=== PATIENT | female | born 1950 | race Caucasian/White ===

== ENCOUNTER 2017-07-13 17:57 | Inpatient (IN) | payer MEDICARE, OTHER, SELFPAY ==
[2017-07-13 17:59] VITALS: BP 148/86; PULSE 91; RESP 12; TEMP 37.1; O2SAT 96
--- NOTE | 2017-07-13 18:13 | ED.RN ---
MOUTH SWABS CLEANSED. MOUTH, DRY AND CRACKED. PT WEAK ANS SLEEP MOST DAY PER
[2017-07-13] MEDS: 0.9% Normal Saline 1,000 ML 1000 ML IV (18:15)
--- NOTE | 2017-07-13 18:27 | EKG12_ITS ---
Test Reason : GENERAL ILLNESS Blood Pressure : / mmHG Vent. Rate : 086 BPM Atrial Rate : 086 BPM P-R Int : 168 ms QRS Dur : 088 ms QT Int : 318 ms P-R-T Axes : 030 -57 115 degrees QTc Int : 380 ms Normal sinus rhythm Left axis deviation Septal infarct , age undetermined Abnormal ECG Confirmed by ESEQUIEL COLLIER, JACKELIN ([id number]), market editor SAVAGE FREED ([id number]) on 07/15/2017 1:00:50 PM Referred By: MAKENNA Confirmed By:JACKELIN IRAHETA MD
--- NOTE | 2017-07-13 18:27 | RAD_ITS ---
STUDY: X-RAY CHEST REASON FOR EXAM: Female, 67 years old. Weakness TECHNIQUE: Single frontal view of the chest. COMPARISON: June 12, 2016 FINDINGS: The lungs are clear and expanded. There is no demonstrated pleural abnormality. Normal size heart. Normal mediastinum and nahomy. Normal visualized pulmonary arteries. Normal visualized aortic arch and descending thoracic aorta. Normal visualized thoracic spine. Normal visualized ribs, clavicles, and shoulders. There is no demonstrated abnormality of the visualized soft tissue structures of the upper abdomen. RAD/Chest 1 View (Portable) IMPRESSION: Normal x-ray examination of the chest. Electronically Signed: Jh Griffin MD at 19:09 EDT , Service support ,
--- NOTE | 2017-07-13 18:27 | CT_ITS ---
STUDY: CT BRAIN WITHOUT CONTRAST REASON FOR EXAM: Female, 67 years old. Weakness RADIATION DOSAGE (If Supplied By Facility): CTDIvol = ( 44.99 ) mGy, DLP = ( 779.24 ) mGycm TECHNIQUE: Transaxial CT imaging of the brain was performed without administration of intravenous contrast material. Individualized dose optimization techniques were used for this CT. COMPARISON: July 03, 2016 FINDINGS: Normal soft tissue structures. Normal calvarium. There is ill-defined hypodensity in the left occipital lobe. Intracranial atherosclerosis. Normal size ventricles and extra-axial spaces for the patient's age. Normal white matter tracts of the cerebral hemispheres. Remote lacunar infarcts are noted in the basal ganglia bilaterally. Normal brainstem. Normal cerebellum. There is no intracranial hemorrhage. There are no findings of an acute ischemic infarction. Normal visualized paranasal sinuses. CT/Brain/Head without Contrast IMPRESSION: Subacute infarct left posterior cerebral artery territory unchanged. MRI would be helpful for further characterization if clinically warranted. Remote bilateral lacunar infarcts. Electronically Signed: Jh Griffin MD at 19:03 EDT , Service support ,
[2017-07-13 18:40] LABS: Absolute Lymphocyte Count 2.78 X10^3/ul (0.83-4.51); Absolute Neutrophil Count 6.2 X10^3/uL (2.0-7.7); Basophil# 0.04 X10^3/uL; Basophil% 0.4 % (0-1); Eosinophil# 0.35 X10^3/uL; Eosinophils% 3.4 % (0-5); Hemoglobin 13.1 g/dl (12.0-15.0); Lymphocyte # 2.78 X10^3/ul (4.0); Lymphocyte % 27.3 % (19-41); Mean Corpuscular Hgb 28.1 pg (27.0-32.0); Monocyte# 0.82 X10^3/uL; Monocyte% 8.1 % (0-10); Neutrophil # 6.17 X10^3/uL (2.7-7.7); Neutrophil % 60.7 % (47-70); Platelet Count 272 K/mm3 (150-450); RBC Distribution Width CV 12.7 % (11.6-14.6); RBC Distribution Width SD 40.4 fl (35.1-43.9); Red Blood Count 4.66 M/mm3 (4.2-5.4); White Blood Count 10.2 K/mm3 (4.4-11.0)
[2017-07-13 18:43] LABS: POSITIVE COUNT NO; POSITIVE DIFFERENTIAL NO; POSITIVE MORPHOLOGY NO
[2017-07-13] MEDS: 0.9% Normal Saline 1,000 ML 250 ML IV (18:52)
[2017-07-13 18:57] LABS: ALB/GLOB Ratio 0.9 RATIO (0.9-2.4); AST(SGOT) 33 U/L (15-37); Alanine Aminotransfer ALT/SGPT 47 U/L (13-56); Albumin, Serum 3.4 g/dL (3.2-5.0); Alkaline Phosphatase 119 U/L (45-117); Anion Gap 9 (5-15); BUN 35 mg/dL (7-18); BUN/Creat Ratio 27.3 RATIO (10-20); Calcium,Total 9.5 mg/dL (8.5-10.1); Chloride 111 mmol/L (98-107); Creatinine, Serum 1.28 mg/dL (0.55-1.02); EST Glomerular Filtration Rate 44 mL/min (>60); Est Glom Filt Rate - Afr Amer 54 mL/min (>60); Estimated Creatinine Clearance 43.41 ml/min; Globulin 3.8 g/dL (2.2-4.2); Glucose 118 mg/dL (74-106); Potassium 3.8 mmol/L (3.5-5.1); Protein, Total 7.2 g/dL (6.4-8.2); Sodium Level 146 mmol/L (136-145)
[2017-07-13 19:13] LABS: Mucous, Urine 0 SEEN /hpf (<or=2+); Red Blood Cells-Urine 0 SEEN /hpf (0-5)
[2017-07-13 19:24] LABS: Color, Urine Yellow (Yellow); Glucose, Dipstick Normal (Normal); Ketone-Dipstick Negative (Negative); Leukocyte Esterase-Dipstick 500 /ul (Negative); Nitrite-Dipstick Positive (Negative); Occult Blood-Urine 50 /ul (Negative); Protein-Dipstick 30 mg/dl (Negative); Urine Bilirubin Dipstick Negative (Negative); Urine Clarity Cloudy (Clear); Urine Urobilinogen Normal (Normal)
[2017-07-13 19:41] LABS: White Blood Cells 25-50 SEEN /hpf (0-5)
[2017-07-13 19:50] LABS: Bacteria 4+ /hpf (None Seen)
[2017-07-13 19:52] LABS: Squamous Epithelial Cells - UA 5-10 SEEN /hpf (5-10)
[2017-07-13] MEDS: Ceftriaxone 1 GM/50 ML BAG IV (20:41)
[2017-07-13 20:48] VITALS: BP 119/59; PULSE 92; RESP 20; TEMP 36.7; O2SAT 96
[2017-07-13 21:18] VITALS: BP 133/90; PULSE 90; RESP 18
--- NOTE | 2017-07-13 22:31 | ED.VISSUMM ---
- ER Visit Summary Date of Service: 07/13/17 Chief Complaint: Dehydration, weakness, decreased p.o. intake History of Present Illness: The patient is a 67 F presenting for evaluation from home secondary to the above. Apparently the patient recently suffered a stroke with residual right-sided symptoms. She was initially in a long term for this. Patient's did not want her to remain in a long term, so made the decision to bring the patient home and attempt care for her at home. He does have home health care a couple times a week for 5 hours of time. He states that the patient however has been declining functionally, and really has been extremely difficult to get to eat or drink anything. Patient states that she just feels generally weak is unable to get up or get around, and states that nothing tastes good to her. She denies any sort of fever or chest pain nausea vomiting diarrhea. She has chronic weakness on the right secondary to her stroke. Review of systems otherwise negative. Physical Examination: Vital signs within normal limits. Well-nourished female pale but otherwise not in physiologic distress. Dry mucous membranes are noted. Neck was supple. Heart regular rate and rhythm. Lungs sounds clear to auscultation bilaterally. Abdomen soft nontender. Extremities nontender. Skin was pale, patient was alert and oriented and has baseline right-sided weakness secondary to her stroke. Test Results: EKG shows sinus rate of [address] segments normal T waves. There is evidence of septal Q waves. CBC unremarkable, chemistry shows elevated sodium 146, urinalysis does show evidence of leukocytes and infection troponin negative. Chest x-ray shows chronic changes per radiology, CT brain shows chronic changes Emergency Department Course and Treatment: Patient presented secondary to functional decline dehydration decreased p.o. intake. Patient was evaluated with the above workup and was found to have a UTI and dehydration. She was given a liter normal saline and Rocephin. I discussed with patient's . He states that he is okay with patient being admitted and potentially having a temporary long term stay but his ultimate goal is for the patient to go home. I did tell him that the patient would potentially have a prolonged recovery period, and that there are multiple options available including increased resources at home. I informed him that this would be discussed while the patient was admitted. Patient will be admitted under the hospitalist. Disposition: Admission Impression: 1. UTI 2. Dehydration 3. Functional decline This note was generated with Connie dictation software. It may contain incorrect words, spelling, and punctuation that were not noted in review of the chart prior to signing ED Disposition - Plan for ED Patient: Chief Complaint: General Illness Referrals: Pascual Alberto MD [Primary Care Provider] -
--- NOTE | 2017-07-13 22:34 | ED.DCSUM_ITS ---
- ER Visit Summary Date of Service: 07/13/17 Chief Complaint: Dehydration, weakness, decreased p.o. intake History of Present Illness: The patient is a 67 F presenting for evaluation from home secondary to the above. Apparently the patient recently suffered a stroke with residual right-sided symptoms. She was initially in a long-term for this. Patient's did not want her to remain in a long-term, so made the decision to bring the patient home and attempt care for her at home. He does have home health care a couple times a week for 5 hours of time. He states that the patient however has been declining functionally, and really has been extremely difficult to get to eat or drink anything. Patient states that she just feels generally weak is unable to get up or get around, and states that nothing tastes good to her. She denies any sort of fever or chest pain nausea vomiting diarrhea. She has chronic weakness on the right secondary to her stroke. Review of systems otherwise negative. Physical Examination: Vital signs within normal limits. Well-nourished female pale but otherwise not in physiologic distress. Dry mucous membranes are noted. Neck was supple. Heart regular rate and rhythm. Lungs sounds clear to auscultation bilaterally. Abdomen soft nontender. Extremities nontender. Skin was pale, patient was alert and oriented and has baseline right-sided weakness secondary to her stroke. Test Results: EKG shows sinus rate of [address] segments normal T waves. There is evidence of septal Q waves. CBC unremarkable, chemistry shows elevated sodium 146, urinalysis does show evidence of leukocytes and infection troponin negative. Chest x-ray shows chronic changes per radiology, CT brain shows chronic changes Emergency Department Course and Treatment: Patient presented secondary to functional decline dehydration decreased p.o. intake. Patient was evaluated with the above workup and was found to have a UTI and dehydration. She was given a liter normal saline and Rocephin. I discussed with patient's . He states that he is okay with patient being admitted and potentially having a temporary long-term stay but his ultimate goal is for the patient to go home. I did tell him that the patient would potentially have a prolonged recovery period, and that there are multiple options available including increased resources at home. I informed him that this would be discussed while the patient was admitted. Patient will be admitted under the hospitalist. Disposition: Admission Impression: 1. UTI 2. Dehydration 3. Functional decline This note was generated with Connie dictation software. It may contain incorrect words, spelling, and punctuation that were not noted in review of the chart prior to signing ED Disposition - Plan for ED Patient: Chief Complaint: General Illness Referrals: Pascual Alberto MD [Primary Care Provider] -
--- NOTE | 2017-07-13 22:49 | ED.RN ---
PT'S DID C/O DR CHOWDARY TAKEN CARE OF HIS AND DR SHERWOOD DID SPEAK TO HIM ABOUT THAT.PT'S OK WITH ADMISSION.
--- NOTE | 2017-07-13 22:57 | PCM.HP.STD ---
Problem List (1) UTI (urinary tract infection) Status: Acute (2) CVA (cerebral vascular accident) Status: Acute Qualifiers: Laterality of affected vessel: unspecified (3) Dementia Status: Chronic Qualifiers: Dementia type: unspecified type Dementia behavioral disturbance: without behavioral disturbance Qualified Code(s): F03.90 - Unspecified dementia without behavioral disturbance (4) Diabetes Status: Chronic Qualifiers: Diabetes mellitus type: type 2 Diabetes mellitus assistant research scientist insulin use: with [facility] use Diabetes mellitus complication status: with unspecified complications Qualified Code(s): E11.8 - Type 2 diabetes mellitus with unspecified complications; Z79.4 - half-way (current) use of insulin (5) Obesity (BMI 30.0-34.9) Status: Chronic (6) PFO (patent foramen ovale) Status: Chronic (7) Sjogren's disease Status: Chronic Qualifiers: Sjogren's organ involvement: unspecified organ involvement Qualified Code(s): M35.00 - Sicca syndrome, unspecified History of Present Illness Date of Admission: 07/13/17 Chief Complaint: UTI The patient is a 67 year old female w/ 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 She was taken out of the half-way by her who has been caring for her. He has been doing his best to care for her but her needs are well beyond his ability to care. He has home health 3 times a week to help him care for her. Her appetite has been poor in the last several weeks with minimal food intake. She has been drinking boost and water. She also has been losing weight as a result. She has gotten progressively weaker in the past few days to weeks. Nothing appeared to make it better or worse. Weakness is not associated with any symptoms. She is unable to care for ADLs. She does not have any dysuria or burning sensation. Past Medical History Past Medical History (Chronic Problems): Chronic Problems PFO (patent foramen ovale) (Chronic) Obesity (BMI 30.0-34.9) (Chronic) Sjogren's disease (Chronic) Diabetes (Chronic) Dementia (Chronic) Allergies latex Allergy (Verified 07/13/17 18:04) Rash Sulfa (Sulfonamide Antibiotics) Allergy (Verified 07/13/17 18:04) Other SWEATING oxycodone [Oxycodone] Adverse Reaction (Verified 07/13/17 18:04) Nausea CHLORINE Allergy (Uncoded 07/13/17 18:04) Rash NITRATES Allergy (Uncoded 07/13/17 18:04) Anaphylaxis Home Medications: Ambulatory Orders Medication Instructions Recorded Atorvastatin Calcium [Lipitor] 40 mg PO QHS 06/18/16 hydrALAZINE [Apresoline] 10 mg PO BID 06/18/16 Amlodipine [Norvasc] 10 mg PO DAILY 07/13/17 Clonazepam [Clonazepam Tab.Rapdis] 1 mg PO QHS 07/13/17 Escitalopram Oxalate [Lexapro] 5 mg PO DAILY 07/13/17 Levothyroxine [Synthroid] 75 mcg PO DAILY 07/13/17 Surgical History: appendectomy, - - knee replacement x 2 Smoking Status: Never smoker - *Family History Paternal History Items: Pulmonary Disease - Maternal History Items: Diabetes, Dementia - Review of Systems Constitutional: Denies: Chills, Fever, Weight Change HEENT: Denies: Head Aches, Sinus Congestion, Sinus Drainage Cardiovascular: Denies: Chest Pain, Palpitations Respiratory: Denies: Cough, Shortness of breath at rest, Sputum production Gastrointestinal: Denies: Abdominal Pain, Nausea, Vomiting Genitourinary: Denies: Dysuria Musculoskeletal: Denies: Joint Pain, Joint Tenderness Skin: Denies: Rash, Wounds Neurological: Denies: Numbness, Tingling, Focal weakness Psychiatric: Denies: Anxiety, Depression, Homicidal Ideations, Suicidal Ideations Hematologic/ Lymphatic: Denies: Easy Bruising, Easy Bleeding VTE Information - Inpt Only VTE Present on Admission: No VTE Mechan Device Prophylaxis: SCD's VTE Pharm Prophylaxis ordered?: Yes Patient Problems: Active and Suspected Problems UTI (urinary tract infection) (Acute) - Physical Exam General: Alert, Oriented x3, Cooperative HEENT: Atraumatic, PERRLA, EOMI, Normocephalic Neck: Supple, No JVD, Negative Carotid Bruits Lungs: Clear to auscultation, Normal air movement Cardiovascular: Regular rate, No murmurs Abdomen: Bowel Sounds Present, Soft, Non Tender Extremities: No edema, Capillary Refill Less than 3 Seconds Skin: No rashes, No breakdown Musculoskeletal: No Tenderness to Palpation of Joints or Extremities Neurological: Cranial nerves II-XII grossly intact, - - Right sided weakness Psych/Mental Status: Normal Affect, Appropriate Vital Signs Temp Pulse Resp BP Pulse Ox 98.0 F 90 18 133/90 H 96 07/13/17 20:48 07/13/17 21:18 07/13/17 21:18 07/13/17 21:18 07/13/17 20:48 Oxygen Delivery Method Room Air Weight: 63.6 kg Body Mass Index (BMI) 0.0 Finger Stick Blood Glucose 190 Laboratory Tests Past 24 Hrs 07/13/17 07/13/17 07/13/17 18:03 18:03 19:10 WBC 10.2 RBC 4.66 Hgb 13.1 Hct 41.0 MCV 88.0 MCH 28.1 MCHC 32.0 RDW 12.7 RDW Differential 40.4 Plt Count 272 MPV 10.0 Immature Gran % (Auto) 0.100 Neut % (Auto) 60.7 Lymph % (Auto) 27.3 [place] % (Auto) 8.1 Eos % (Auto) 3.4 Baso % (Auto) 0.4 Absolute Neuts (auto) 6.2 Absolute Lymphs (auto) 2.78 Total Counted Not Reportable Sodium 146 H Potassium 3.8 Chloride 111 H Carbon Dioxide 26.0 Anion Gap 9 BUN 35 H Creatinine 1.28 H Estim Creat Clear Calc 43.41 Est GFR (MDRD) Af Amer 54 L Est GFR (MDRD) Non-Af 44 L BUN/Creatinine Ratio 27.3 H Glucose 118 H Calcium 9.5 Total Bilirubin 0.70 AST 33 ALT 47 Alkaline Phosphatase 119 H Troponin I < 0.02 Total Protein 7.2 Albumin 3.4 Globulin 3.8 Albumin/Globulin Ratio 0.9 Urine Color Yellow Urine Clarity Cloudy Urine pH 7.0 Ur Specific [place] 1.010 Urine Protein 30 H Urine Glucose (UA) Normal Urine Ketones Negative Urine Occult Blood 50 H Urine Nitrite Positive H Urine Bilirubin Negative Urine Urobilinogen Normal Ur Leukocyte Esterase 500 H Urine RBC 0 SEEN Urine WBC 25-50 SEEN Ur Squamous Epith Cells 5-10 SEEN Urine Bacteria 4+ Urine Mucus 0 SEEN Assessment/Plan Active and Suspected Problems UTI (urinary tract infection) (Acute) 67 year old female w/ 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 1) UTI: Most likely secondary to poor hygiene. High risk for recurrent infection. C/w ceftriaxone. Cultures pending. 2) Physical decondition: H/o CVA. C/w PT/OT. Probably will need to increase home health vs half-way. High risk for readmission given pt poor insight and judgment. She is not enthusiastic / motivated for rehab. 3) HTN: Resume home meds. 4) Prophylaxis: SCD / heparin.
[2017-07-13 23:07] VITALS: BMI 26.4
[2017-07-13] MEDS: 0.45% Normal Saline 1,000 ML 125 ML IV (23:58)
[2017-07-14] VITALS (16 sets, daily range): BP systolic 122–160; BP diastolic 62–78; PULSE 64–155; RESP 15–68; TEMP 36.3–36.8; O2SAT 94–98
[2017-07-14] MEDS: Levothyroxine 75 MCG Tablet PO (05:12)
[2017-07-14 05:39] LABS: Absolute Lymphocyte Count 2.83 X10^3/ul (0.83-4.51); Absolute Neutrophil Count 5.7 X10^3/uL (2.0-7.7); Basophil# 0.04 X10^3/uL; Basophil% 0.4 % (0-1); Eosinophil# 0.32 X10^3/uL; Eosinophils% 3.3 % (0-5); Hemoglobin 11.9 g/dl (12.0-15.0); Lymphocyte # 2.83 X10^3/ul (4.0); Mean Corp Hgb Conc 33.1 g/gl (32-36); Mean Corpuscular Hgb 28.6 pg (27.0-32.0); Mean Corpuscular Volume 86.5 fL (81-99); Mean Platelet Vol. 10.1 fl (6.2-12.0); Monocyte# 0.92 X10^3/uL; Monocyte% 9.4 % (0-10); Neutrophil # 5.65 X10^3/uL (2.7-7.7); Neutrophil % 57.8 % (47-70); Platelet Count 255 K/mm3 (150-450); RBC Distribution Width CV 12.1 % (11.6-14.6); RBC Distribution Width SD 37.8 fl (35.1-43.9); Red Blood Count 4.16 M/mm3 (4.2-5.4); White Blood Count 9.8 K/mm3 (4.4-11.0)
[2017-07-14 05:54] LABS: Anion Gap 11 (5-15); BUN 23 mg/dL (7-18); BUN/Creat Ratio 25.9 RATIO (10-20); Calcium,Total 8.7 mg/dL (8.5-10.1); Chloride 110 mmol/L (98-107); Creatinine, Serum 0.89 mg/dL (0.55-1.02); EST Glomerular Filtration Rate 67 mL/min (>60); Est Glom Filt Rate - Afr Amer 82 mL/min (>60); Estimated Creatinine Clearance 44.66 ml/min; Glucose 79 mg/dL (74-106); Potassium 3.3 mmol/L (3.5-5.1); Sodium Level 142 mmol/L (136-145)
[2017-07-14 06:03] LABS: POSITIVE COUNT NO; POSITIVE DIFFERENTIAL NO; POSITIVE MORPHOLOGY NO
[2017-07-14] MEDS: 0.45% Normal Saline 1,000 ML 125 ML IV ×2 (08:08→21:53)
[2017-07-14] MEDS: Glucerna Shake 120 ML LIQUID PO ×4 (08:11→21:38)
[2017-07-14] MEDS: hydrALAZINE 10 MG Tablet PO ×2 (08:12→21:38)
[2017-07-14] MEDS: amLODIPine 10 MG Tablet PO (08:12)
--- NOTE | 2017-07-14 08:35 | EKG12_ITS ---
Test Reason : POSSIBLE INVERTED P Blood Pressure : / mmHG Vent. Rate : 094 BPM Atrial Rate : 094 BPM P-R Int : 194 ms QRS Dur : 092 ms QT Int : 382 ms P-R-T Axes : 049 -69 049 degrees QTc Int : 477 ms Normal sinus rhythm Left axis deviation Inferior infarct , age undetermined Anterolateral infarct , age undetermined Abnormal ECG When compared with ECG of 13-JUL-2017 18:54, MANUAL COMPARISON REQUIRED, DATA IS UNCONFIRMED Confirmed by ESEQUIEL COLLIER, JACKELIN ([id number]), online content editor SAVAGE FREED ([id number]) on 07/22/2017 1:33:53 PM Referred By: EPI Confirmed By:JACKELIN IRAHETA MD
[2017-07-14] MEDS: Ceftriaxone 1 GM/50 ML BAG IV (09:43)
--- NOTE | 2017-07-14 10:28 | MRI_ITS ---
STUDY: MRI BRAIN WITHOUT CONTRAST REASON FOR EXAM: Female, 67 years old. Confusion TECHNIQUE: Standardized multiplanar fat and water weighted pulse sequences were obtained. COMPARISON: Comparison is made with July 13, 2017 CT examination No evidence for shift of midline structures, mass effect or compression of the ventricles noted. No acute or subacute ischemic insult. No acute intra or extra-axial hemorrhage No evidence for cerebellar tonsillar herniation. The basal cisterns are patent. Posterior fossa structures demonstrate no discrete mass. Chronic bilateral basal ganglia lacunar infarcts. Chronic left SUBACUTE NURSE division infarct in the left medial occipital lobe with evidence of inflammation gliosis. Left-sided wallerian degeneration. Scattered foci of T2/FLAIR hyperintensity in the periventricular and subcortical white matter also noted which are nonspecific in imaging appearance however likely related with chronic small vessel disease. Small cortical-based infarct in the supratentorial compartment also seen. Chronic right cerebellar small infarct also seen. Partially empty sella noted. Mild cerebral volume loss. Mild mucosal thickening of the ethmoid air cells. IMPRESSION: No evidence for acute or subacute ischemic insult. Chronic left basal ganglia hemorrhagic infarct. Chronic small vessel disease. Chronic left SUBACUTE NURSE division infarct in the left occipital lobe. Chronic right cerebellar infarct. No evidence for acute intracranial hemorrhage or mass seen. Electronically Signed: Toni Roth, at 20:05 EDT Tel , Service support , MRI/Brain without Contrast
--- NOTE | 2017-07-14 10:28 | ECHOCS_ITS ---
Reason For Study: EMBOLI Procedure This was a 2D Doppler, Color Flow transthoracic echocardiogram. Contrast injection was performed. The study was technically difficult. Exam performed in department. Left Ventricle Normal LV size. Left ventricular systolic function is normal. The estimated ejection fraction is 60 %. Transmitral diastolic flow velocities suggest mild (stage 1) diastolic dysfunction (reversed pattern). No regional wall motion abnormalities noted. Right Ventricle Normal RV size. Normal systolic function. Atria Normal left atrium. Normal right atrium. Mitral Valve Mitral valve not well visualized. Tricuspid Valve The tricuspid valve is not well visualized. Mild (1+) tricuspid valve insufficiency. Pulmonary artery systolic pressure is 25 mmHg. Aortic Valve The aortic valve is not well visualized. Pulmonic Valve Normal pulmonic valve. Great Vessels Normal aortic root. The pulmonary artery is normal size. Normal inferior vena cava. Pericardium/Pleural No pericardial effusion. Medication Diluted definity 3ml given slow IV push to enhance endocardial definition. MMode/2D Measurements & Calculations LVIDd: 3.4 cm IVSd: 1.0 cm Ao root diam: 3.3 cm LVIDs: 2.1 cm LVPWd: 0.98 cm LA dimension: 3.7 cm RVDd: 2.8 cm FS: 39.3 % LAV(MOD-bp): 24.4 ml LVAd ap4: 25.9 cm2 SV(MOD-sp4): 43.5 ml LAV(MOD-bp) Indexed: 15.4 ml/m2 EDV(MOD-sp4): 70.6 ml LAV(MOD-sp2): 20.8 ml EDV(sp4-el): 72.3 ml LAV(MOD-sp4): 28.8 ml LVAs ap4: 14.5 cm2 ESV(MOD-sp4): 27.1 ml ESV(sp4-el): 26.9 ml EF(MOD-sp4): 61.7 % EF(sp4-el): 62.8 % SV(sp4-el): 45.4 ml LA A4 area: 12.6 cm2 RA A4 area: 10.4 cm2 Doppler Measurements & Calculations MV E max melvin: 56.7 cm/sec Ao V2 max: 128.8 cm/sec LV V1 max: 90.0 cm/sec MV A max melvin: 97.1 cm/sec Ao max P.6 mmHg LV V1 max P.2 mmHg MV E/A: 0.58 TR max melvin: 209.6 cm/sec TR max P.6 mmHg Interpretation Summary Normal LV size. Left ventricular systolic function is normal. The estimated ejection fraction is 60 %. Transmitral diastolic flow velocities suggest mild (stage 1) diastolic dysfunction (reversed pattern). Mild (1+) tricuspid valve insufficiency. Ordering Physician: Jovani Cano Referring Physician: ELLIE TANG Performed By: Esperanza Rodriguez, MARIO, RVT
--- NOTE | 2017-07-14 12:54 | PCM.PROGNOTE ---
<Jovani Cano - Last Filed: 07/14/17 12:54> Patient Problems: Active and Suspected Problems UTI (urinary tract infection) (Acute) Subjective: Pt confused, currently not present. Pt worked with PTOT today and was very weak. She has home health care 3x/week currently and otherwise her has been caring for her. She denies dysuria, urgency, incontinence, but her hx is unreliable as the nurses report she is incontinent of urine. She denies fevers chills. She is sitting upright in the chair at bedside and required 2 assist to get there. - Physical Exam General: Alert, Cooperative, Confused HEENT: Atraumatic, PERRLA, EOMI, Normocephalic Neck: Supple, No JVD, Negative Carotid Bruits Lungs: Clear to auscultation, Normal air movement Cardiovascular: Regular rate, No murmurs Abdomen: Bowel Sounds Present, Soft, Non Tender Extremities: No edema, Capillary Refill Less than 3 Seconds Skin: No rashes, No breakdown Musculoskeletal: No Tenderness to Palpation of Joints or Extremities Neurological: Cranial nerves II-XII grossly intact Psych/Mental Status: Normal Affect, Appropriate Vital Signs Temp Pulse Resp BP Pulse Ox 97.7 F L 90 16 122/67 H 96 07/14/17 11:03 07/14/17 12:26 07/14/17 11:03 07/14/17 11:03 07/14/17 11:03 Medical Necessity - Tobacco Use Smoking Status: Never smoker Assessment/Plan Active and Suspected Problems UTI (urinary tract infection) (Acute) 1. Worsening generalized weakness - ? UTI, + UA, but asymptomatic, although hx unreliable 2/2 confusion/dementia. CT shows left subacute infarct remote BL lacunar infarcts. Will obtain MRI of the brain. No echo since 2014 so will order new one. Continue rocephin. Cx pending. No fever or WBC. Trop neg. No events on tele. CXR neg. Cx showing GNR lactose dietitian therapeutic. Follow PTOT. 2. Prior stroke 2017 hemorrhagic but also hx of receiving TPA - on statin, no asa. 3. HTN stable 4. Hypothyroid - synthroid - check tsh. 5. Hypokalemia - replace 6. Elevated creatinine, unclear baseline. Improved. 7. Suspect underlying dementia - benzos should be limited. Continue Lexapro. 8. Hx PFO 9. Hx of DMt2 - now diet controlled. 10. Hx Dysphagia - will get ST. DVT ppx: heparin DC planning: SNF, is reluctant This patient was seen by Jovani Cano PA-C under the supervision of Doctor Inna. <Francis Keith E - Last Filed: 07/14/17 14:03> - Physical Exam Vital Signs Temp Pulse Resp BP Pulse Ox 97.7 F L 90 16 122/67 H 96 07/14/17 11:03 07/14/17 12:26 07/14/17 11:03 07/14/17 11:03 07/14/17 11:03 Assessment/Plan Hospitalist note: I am seeing this patient in conjunction with Jovani Cano. I independently seen and examined the patient. Progress note above, laboratory data and imaging studies reviewed. I agree with above treatment plan. Patient was admitted for vague symptoms of weakness, decreased oral intake and dehydration. She was found to have acute cystitis and started on IV antibiotics. She had a history of stroke with right-sided hemiparesis. CT scan brain revealed subacute infarction of the left posterior cerebral artery territory. Patient has history of stroke 2 years ago and those changes could be new. The patient herself is very poor informant. Her vital signs are stable. - Physical Exam General: Alert, Cooperative, No apparent distress. HEENT: Atraumatic, PERRLA, EOMI. Neck: Supple, No JVD, Negative Carotid Bruits, Trachea Midline, Thyroid Normal. Lungs: Decreased breath sounds bilateral, otherwise clear no rhonchi, No wheeze, No rales. Cardiovascular: Regular rate, Regular Rhythm, Normal S1, Normal S2, PMI Normal. Abdomen: Bowel Sounds Present, Soft, Non Tender, Non-Distended, No Hepato-splenomegaly. Extremities: No clubbing, No cyanosis, No edema Skin: No rashes, No breakdown Neurological: Right-sided hemiparesis, cranial nerves are intact. Vital Signs are stable. Assessment and plan: #1 acute cystitis: She is on IV Rocephin. Urine and blood cultures are pending. #2 mild dehydration/mild hypernatremia: Likely because of poor oral intake, creatinine was 1.28 on admission and sodium was 146 and with IV fluids, sodium came down to 142 and creatinine came down to 0.9. Her potassium is 3.3, she was given 1 dose of K-Dur 20 mEq this morning. #3 generalized weakness: With history of right-sided hemiparesis because of stroke. CT scan brain revealed subacute infarct but patient has a history of stroke 2 years ago. Plan for MRI brain, 2D echocardiogram. She had a history of PFO. She is on statins. #4 other chronic medical problems: Stable, continue current medications as above. This note was generated with [employer] dictation software. It may contain incorrect words, spelling, and punctuation that were not noted in checking the note before signing. Code Visit Inpatient E&M: 92375 Subs Hosp L2
--- NOTE | 2017-07-14 13:06 | PN_ITS ---
<Jovani Cano - Last Filed: 07/14/17 12:54> Patient Problems: Active and Suspected Problems UTI (urinary tract infection) (Acute) Subjective: Pt confused, currently not present. Pt worked with PTOT today and was very weak. She has home health care 3x/week currently and otherwise her has been caring for her. She denies dysuria, urgency, incontinence, but her hx is unreliable as the nurses report she is incontinent of urine. She denies fevers chills. She is sitting upright in the chair at bedside and required 2 assist to get there. - Physical Exam General: Alert, Cooperative, Confused HEENT: Atraumatic, PERRLA, EOMI, Normocephalic Neck: Supple, No JVD, Negative Carotid Bruits Lungs: Clear to auscultation, Normal air movement Cardiovascular: Regular rate, No murmurs Abdomen: Bowel Sounds Present, Soft, Non Tender Extremities: No edema, Capillary Refill Less than 3 Seconds Skin: No rashes, No breakdown Musculoskeletal: No Tenderness to Palpation of Joints or Extremities Neurological: Cranial nerves II-XII grossly intact Psych/Mental Status: Normal Affect, Appropriate Vital Signs Temp Pulse Resp BP Pulse Ox 97.7 F L 90 16 122/67 H 96 07/14/17 11:03 07/14/17 12:26 07/14/17 11:03 07/14/17 11:03 07/14/17 11:03 Medical Necessity - Tobacco Use Smoking Status: Never smoker Assessment/Plan Active and Suspected Problems UTI (urinary tract infection) (Acute) 1. Worsening generalized weakness - ? UTI, + UA, but asymptomatic, although hx unreliable 2/2 confusion/dementia. CT shows left subacute infarct remote BL lacunar infarcts. Will obtain MRI of the brain. No echo since 2014 so will order new one. Continue rocephin. Cx pending. No fever or WBC. Trop neg. No events on tele. CXR neg. Cx showing GNR lactose agricultural equipment sales manager. Follow PTOT. 2. Prior stroke 2017 hemorrhagic but also hx of receiving TPA - on statin, no asa. 3. HTN stable 4. Hypothyroid - synthroid - check tsh. 5. Hypokalemia - replace 6. Elevated creatinine, unclear baseline. Improved. 7. Suspect underlying dementia - benzos should be limited. Continue Lexapro. 8. Hx PFO 9. Hx of DMt2 - now diet controlled. 10. Hx Dysphagia - will get ST. DVT ppx: heparin DC planning: SNF, is reluctant This patient was seen by Jovani Cano PA-C under the supervision of Doctor Inna. <Francis Keith E - Last Filed: 07/14/17 14:03> - Physical Exam Vital Signs Temp Pulse Resp BP Pulse Ox 97.7 F L 90 16 122/67 H 96 07/14/17 11:03 07/14/17 12:26 07/14/17 11:03 07/14/17 11:03 07/14/17 11:03 Assessment/Plan Hospitalist note: I am seeing this patient in conjunction with Jovani Cano. I independently seen and examined the patient. Progress note above, laboratory data and imaging studies reviewed. I agree with above treatment plan. Patient was admitted for vague symptoms of weakness, decreased oral intake and dehydration. She was found to have acute cystitis and started on IV antibiotics. She had a history of stroke with right-sided hemiparesis. CT scan brain revealed subacute infarction of the left posterior cerebral artery territory. Patient has history of stroke 2 years ago and those changes could be new. The patient herself is very poor informant. Her vital signs are stable. - Physical Exam General: Alert, Cooperative, No apparent distress. HEENT: Atraumatic, PERRLA, EOMI. Neck: Supple, No JVD, Negative Carotid Bruits, Trachea Midline, Thyroid Normal. Lungs: Decreased breath sounds bilateral, otherwise clear no rhonchi, No wheeze , No rales. Cardiovascular: Regular rate, Regular Rhythm, Normal S1, Normal S2, PMI Normal. Abdomen: Bowel Sounds Present, Soft, Non Tender, Non-Distended, No Hepato- splenomegaly. Extremities: No clubbing, No cyanosis, No edema Skin: No rashes, No breakdown Neurological: Right-sided hemiparesis, cranial nerves are intact. Vital Signs are stable. Assessment and plan: #1 acute cystitis: She is on IV Rocephin. Urine and blood cultures are pending. #2 mild dehydration/mild hypernatremia: Likely because of poor oral intake, creatinine was 1.28 on admission and sodium was 146 and with IV fluids, sodium came down to 142 and creatinine came down to 0.9. Her potassium is 3.3, she was given 1 dose of K-Dur 20 mEq this morning. #3 generalized weakness: With history of right-sided hemiparesis because of stroke. CT scan brain revealed subacute infarct but patient has a history of stroke 2 years ago. Plan for MRI brain, 2D echocardiogram. She had a history of PFO. She is on statins. #4 other chronic medical problems: Stable, continue current medications as above. This note was generated with [employer] dictation software. It may contain incorrect words, spelling, and punctuation that were not noted in checking the note before signing. Code Visit Inpatient E&M: 34254 Subs Hosp L2
[2017-07-14 13:47] LABS: Thyroid Stim Hormone (TSH) 0.04 uIU/mL (0.358-3.74)
--- NOTE | 2017-07-14 14:57 | CASEMGMT ---
Social Work Note SOHAIL met with pt and Pt's Binh to discuss discharge plans. SOHAIL introduced self and role at [facility]. Pt's Binh states that pt has home health services through [facility] and that he has aide services 3x a week for 5 hours. Binh states that he is able to choose the hours that the aides come to the house and that he is able to increase the amount of days and hours if needed. Binh states that pt has a bedside commode, wheelchair, bathing chair, sit and stand and the home is handicapped accessible. Binh states that the pt stays on the first floor. Binh confirms that the plan is for the pt to discharge home and resume home health services at discharge. Binh states that if necessary he would consider having pt go to [facility] for [facility] term [facility]. Binh states he would like to wait and see before having this worker send a referral to [facility]. SOHAIL informed Binh that if any issues or concerns arise to let staff know to ask for social welfare clerk. Binh states understanding. SOHAIL will continue to follow. Plan: Discharge home to resume home health services Alize ESQUIVEL, RAIL PROJECT ENGINEER.
--- NOTE | 2017-07-14 18:06 | NURSING ---
pt down for mri
[2017-07-14] MEDS: Escitalopram Oxalate 10 MG Tablet 5 MG PO (21:38)
[2017-07-14] MEDS: clonazePAM 1 MG Tablet PO (21:38)
[2017-07-14] MEDS: Atorvastatin Calcium 40 MG Tablet PO (21:38)
[2017-07-15] VITALS (7 sets, daily range): BP systolic 128–140; BP diastolic 61–95; PULSE 84–103; RESP 16–18; TEMP 36.3–36.6; O2SAT 95
[2017-07-15] MEDS: 0.45% Normal Saline 1,000 ML 125 ML IV (06:13)
[2017-07-15] MEDS: Levothyroxine 75 MCG Tablet PO (06:13)
[2017-07-15 06:17] LABS: Anion Gap 8 (5-15); BUN 16 mg/dL (7-18); BUN/Creat Ratio 18.4 RATIO (10-20); Calcium,Total 8.6 mg/dL (8.5-10.1); Chloride 113 mmol/L (98-107); Creatinine, Serum 0.87 mg/dL (0.55-1.02); EST Glomerular Filtration Rate 69 mL/min (>60); Est Glom Filt Rate - Afr Amer 84 mL/min (>60); Estimated Creatinine Clearance 45.69 ml/min; Glucose 98 mg/dL (74-106); Potassium 3.9 mmol/L (3.5-5.1); Sodium Level 142 mmol/L (136-145)
[2017-07-15] MEDS: hydrALAZINE 10 MG Tablet PO (08:30)
[2017-07-15] MEDS: Glucerna Shake 120 ML LIQUID PO (08:31)
[2017-07-15] MEDS: amLODIPine 10 MG Tablet PO (08:31)
[2017-07-15] MEDS: Ceftriaxone 1 GM/50 ML BAG IV (09:22)
[2017-07-15] MEDS: Levothyroxine 50 MCG Tablet PO (10:13)
--- NOTE | 2017-07-15 10:35 | CASEMGMT ---
Social Work Note Pt is ready to discharge. SOHAIL called Pt's Binh to discuss discharge plans. Per Binh, pt will be returning home at discharge and resuming aide services through [facility]. SOHAIL asked Binh if he would be interested in Home Health to receive skilled Pt/Ot therapy at home. Binh was receptive to this and confirmed that he would like to set up skilled Pt/Ot. Binh states that [facility] is fine to set up Pt/Ot through. SOHAIL informed RN IRENE German and she sent referral for home health. Plan: Discharge home and resume aide services through [facility] and home with [facility]. Alize Marino MSW, CONSULTANT ELECTRONICS.
--- NOTE | 2017-07-15 10:47 | PCM.DC ---
- Discharge Diagnoses Current Active Problems: Current Active and Chronic Problems UTI (urinary tract infection) (Acute) You will use the following diet at home:: Cardiac Your food should be the consistency of: Regular Your liquids should be the consistency of: Regular/Thin Discharge Activity: Return to Normal Activity Allergies/Adverse Reactions: Allergies latex Allergy (Verified 07/13/17 18:04) Rash Sulfa (Sulfonamide Antibiotics) Allergy (Verified 07/13/17 18:04) Other SWEATING oxycodone [Oxycodone] Adverse Reaction (Verified 07/13/17 18:04) Nausea CHLORINE Allergy (Uncoded 07/13/17 18:04) Rash NITRATES Allergy (Uncoded 07/13/17 18:04) Anaphylaxis Medications to take at Discharge Atorvastatin Calcium [Lipitor] 40 mg PO QHS 06/18/16 hydrALAZINE [Apresoline] 10 mg PO BID 06/18/16 Amlodipine [Norvasc] 10 mg PO DAILY 07/13/17 Clonazepam [Clonazepam Tab.Rapdis] 1 mg PO QHS 07/13/17 Escitalopram Oxalate [Lexapro] 5 mg PO DAILY 07/13/17 Cephalexin [Keflex] 500 mg PO Q12 #4 cap 07/15/17 Levothyroxine [Synthroid] 50 mcg PO DAILY@0600 #30 tab 07/15/17 The following prescriptions were given: Cephalexin [Keflex] 500 mg PO Q12 #4 cap Levothyroxine [Synthroid] 50 mcg PO DAILY@0600 #30 tab Primary Care Physician: Pascual Alberto MD [Primary Care Provider] - Please follow up with your Primary Care Physician in: 1-2 weeks Proposed Discharge Date: 07/15/17
--- NOTE | 2017-07-15 11:23 | CASEMGMT ---
Social Work Note SOHAIL received call from Binh, pt's . Binh states that he has concerns about bringing pt home and that he is looking for advice. SOHAIL explained to Binh that this worker can't tell Binh what to do and that the decision is his to make. Binh states understanding. SOHAIL informed Binh that his concerns are termite renewal inspector and that the pt will be receiving extra therapy through [facility]. SOHAIL informed Binh that if he was to decide to place pt in a intermediate facility it would be private pay. Binh states understanding of this. Binh states that he will need transportation set up and is requesting it be set up around 12:30-1:00. SOHAIL listened to Binh' concerns and offered insight and support throughout conversation. SOHAIL called [facility] and spoke with Wilma. Transportation is set up for 12:30pm. SOHAIL called Binh back to confirm that transportation is set up for 12:30. Binh states that he will be coming to see patient today before discharge. Plan: Discharge home and resume aide services through [place] and receive skilled Pt/Ot services through [facility]. There are no additional needs at this time. Alize Marino TELEPHONE MAINTAINER, ADVERTISING ACCOUNT MANAGER
--- NOTE | 2017-07-15 13:58 | PCM.DC.SUM ---
<Jovani Cano - Last Filed: 07/15/17 13:58> Discharge Date and Diagnosis Date of Admission: 07/13/17 Date of Discharge: 07/15/17 - Primary Discharge Diagnosis Acute Cystitis - klebsiella Generalized weakness Hypothyroid, suppressed TSH high T4 Mild dehydration, hypokalemia, hypernatremia Suspected underlying dementia Hx CVA, PFO Dysphagia HTN - Secondary Discharge Diagnosis Chronic Problems PFO (patent foramen ovale) (Chronic) Obesity (BMI 30.0-34.9) (Chronic) Sjogren's disease (Chronic) Diabetes (Chronic) Dementia (Chronic) Hospital Course and Treatment Imaging Results: CT/Brain/Head without Contrast IMPRESSION: Subacute infarct left posterior cerebral artery territory unchanged. MRI would be helpful for further characterization if clinically warranted. Remote bilateral lacunar infarcts. RAD/Chest 1 View (Portable) IMPRESSION: Normal x-ray examination of the chest. STUDY: MRI BRAIN WITHOUT CONTRAST IMPRESSION: No evidence for acute or subacute ischemic insult. Chronic left basal ganglia hemorrhagic infarct. Chronic small vessel disease. Chronic left INFORMATION BROKER division infarct in the left occipital lobe. Chronic right cerebellar infarct. No evidence for acute intracranial hemorrhage or mass seen. Echo: Interpretation Summary Normal LV size. Left ventricular systolic function is normal. The estimated ejection fraction is 60 %. Transmitral diastolic flow velocities suggest mild (stage 1) diastolic dysfunction (reversed pattern). Mild (1+) tricuspid valve insufficiency. Operations: None Procedures: 2-D Echocardiogram Summary of Care Provided: Physical exam on day of discharge: General: Resting comfortably NAD Psych: A/Ox1 pleasant affect HEENT: PEARRLA AT NC Neck: Supple NT CV: RRR no m/t/r/g/h Resp: CTA Abd: [id number] Soft NT no guarding or rigidity Ext: DP2+= no edema, poultry pathologist strength minimal right hand, somewhat contracted, minimal right arm strength, minimal right leg strength. Skin: W/D normal turgor Lymph/Heme: No active bleeding or adenopathy Neuro: CN2-12 intact Hospital course: The patient is a 67 year old F with a hx of hemorrhagic and ischemic stroke with chronic right sided hemiplegia in right upper and lower extremities, hx PFO, HTN, dementia who presented to the ER with increasing weakness. Her has been her primary caregiver since pulling her out of care home along with the help of home care aids however she had been getting weaker and not eating or drinking much at home. She was found to have significant generalized weakness with chronic right sided deficits, was confused, and had a UA suspicious for UTI. She was admitted to the hospital and started on rocephin for UTI and PTOT evals. She had a CT of the brain which had possible subacute infarcts on it however consistent with the areas of prior stroke. An MRI was done to further evaluate and an echo was obtained as the last one was in 2014 in our records. The MRI did not reveal acute strokes. The echo was unremarkable. Was very debilitated with PTOT however her was resistant to placement and desired home care only. This was arranged and she was discharged home with home health care in stable condition. Her urine grew out klebsiella susceptible to keflex so she was switch from rocephin to keflex for a total of 5 days of therapy. She will need to continue physical therapy with home health care and she should follow-up with her PCP in 1-2 weeks. This patient was seen by Jovani Cano PA-C under the supervision of Doctor Tony. [] Discharge Diet: Low fat/ Low Cholesterol, 2000 mg Sodium Diet Discharge Activity: Return to Normal Activity Home Medications: Medications to take at Discharge Atorvastatin Calcium [Lipitor] 40 mg PO QHS 06/18/16 hydrALAZINE [Apresoline] 10 mg PO BID 06/18/16 Amlodipine [Norvasc] 10 mg PO DAILY 07/13/17 Clonazepam [Clonazepam Tab.Rapdis] 1 mg PO QHS 07/13/17 Escitalopram Oxalate [Lexapro] 5 mg PO DAILY 07/13/17 Cephalexin [Keflex] 500 mg PO Q12 #4 cap 07/15/17 Levothyroxine [Synthroid] 50 mcg PO DAILY@0600 #30 tab 07/15/17 Following Prescrptions Were Given to Patient: Cephalexin [Keflex] 500 mg PO Q12 #4 cap Levothyroxine [Synthroid] 50 mcg PO DAILY@0600 #30 tab Primary Care Physician: Pascual Alberto MD [Primary Care Provider] - Please follow up with your Primary Care Physician in: 1-2 weeks Disposition: Home with Home Health Minutes spent on discharge:: 35 Patient Condition:: Stable Medical Necessity - Tobacco Use Smoking Status: Never smoker Meaningful Use Info Meaningful Use Diagnoses (Choose all that apply): None applicable <Manjit Jimenez - Last Filed: 07/15/17 15:14> Discharge Date and Diagnosis - Secondary Discharge Diagnosis Chronic Problems PFO (patent foramen ovale) (Chronic) Obesity (BMI 30.0-34.9) (Chronic) Sjogren's disease (Chronic) Diabetes (Chronic) Dementia (Chronic) Hospital Course and Treatment Summary of Care Provided: This patient was seen in conjunction with Jovani CHAUHAN. I have independently interviewed and examined the patient and reviewed pertinent history, examination findings, laboratory and plan of management. I have reviewed the note and agree with the documented findings with the few additional points. In brief, patient is admitted for increasing weakness. Patient has right-sided upper and lower extremity weakness and deformity secondary to multiple previous ischemic and hemorrhagic infarct/stroke as mentioned above. Urine culture shows Klebsiella pneumonia. Patient discharged on Keflex. I have discussed my assessment with Jovani CHAUHAN and orders have been reviewed. Discharge medication reconciliation done. Discharge follow-up instructions given. Total time spent, exact 32 minutes on discharge meds reconciliation, examination, review of imaging and blood test and discussion with the patient on follow-up instructions. [] Clinical Impression(s) from Imaging Studies Brain CT 07/13/17 18:27 IMPRESSION: Subacute infarct left posterior cerebral artery territory unchanged. MRI would be helpful for further characterization if clinically warranted. Remote bilateral lacunar infarcts. Brain MRI 07/14/17 10:28 No evidence for acute or subacute ischemic insult. Chronic left basal ganglia hemorrhagic infarct. Chronic small vessel disease. Chronic left INFORMATION BROKER division infarct in the left occipital lobe. Chronic right cerebellar infarct. No evidence for acute intracranial hemorrhage or mass seen. Microbiology Past 72 Hours 07/13/17 19:10 Urine, Catheterized Urine Culture - Final Klebsiella pneumoniae sp pneum Laboratory Results 07/15/17 05:45: Sodium 142, Potassium 3.9, Chloride 113 H, Carbon Dioxide 21.0, Anion Gap 8, BUN 16, Creatinine 0.87, Estim Creat Clear Calc 45.69, Est GFR (MDRD) Af Amer 84, Est GFR (MDRD) Non-Af 69, BUN/Creatinine Ratio 18.4, Glucose 98, Calcium 8.6 07/15/17 05:50: Free T4 1.80 H Code Visit Inpatient E&M: 78777 Disch Hosp
--- NOTE | 2017-07-15 14:07 | DS.PCM_ITS ---
<Jovani Cano - Last Filed: 07/15/17 13:58> Discharge Date and Diagnosis Date of Admission: 07/13/17 Date of Discharge: 07/15/17 - Primary Discharge Diagnosis Acute Cystitis - klebsiella Generalized weakness Hypothyroid, suppressed TSH high T4 Mild dehydration, hypokalemia, hypernatremia Suspected underlying dementia Hx CVA, PFO Dysphagia HTN - Secondary Discharge Diagnosis Chronic Problems PFO (patent foramen ovale) (Chronic) Obesity (BMI 30.0-34.9) (Chronic) Sjogren's disease (Chronic) Diabetes (Chronic) Dementia (Chronic) Hospital Course and Treatment Imaging Results: CT/Brain/Head without Contrast IMPRESSION: Subacute infarct left posterior cerebral artery territory unchanged. MRI would be helpful for further characterization if clinically warranted. Remote bilateral lacunar infarcts. RAD/Chest 1 View (Portable) IMPRESSION: Normal x-ray examination of the chest. STUDY: MRI BRAIN WITHOUT CONTRAST IMPRESSION: No evidence for acute or subacute ischemic insult. Chronic left basal ganglia hemorrhagic infarct. Chronic small vessel disease. Chronic left REGIONAL CRA division infarct in the left occipital lobe. Chronic right cerebellar infarct. No evidence for acute intracranial hemorrhage or mass seen. Echo: Interpretation Summary Normal LV size. Left ventricular systolic function is normal. The estimated ejection fraction is 60 %. Transmitral diastolic flow velocities suggest mild (stage 1) diastolic dysfunction (reversed pattern). Mild (1+) tricuspid valve insufficiency. Operations: None Procedures: 2-D Echocardiogram Summary of Care Provided: Physical exam on day of discharge: General: Resting comfortably NAD Psych: A/Ox1 pleasant affect HEENT: PEARRLA AT NC Neck: Supple NT CV: RRR no m/t/r/g/h Resp: CTA Abd: [id number] Soft NT no guarding or rigidity Ext: DP2+= no edema, land manager strength minimal right hand, somewhat contracted, minimal right arm strength, minimal right leg strength. Skin: W/D normal turgor Lymph/Heme: No active bleeding or adenopathy Neuro: CN2-12 intact Hospital course: The patient is a 67 year old F with a hx of hemorrhagic and ischemic stroke with chronic right sided hemiplegia in right upper and lower extremities, hx PFO , HTN, dementia who presented to the ER with increasing weakness. Her has been her primary caregiver since pulling her out of residential along with the help of home care aids however she had been getting weaker and not eating or drinking much at home. She was found to have significant generalized weakness with chronic right sided deficits, was confused, and had a UA suspicious for UTI. She was admitted to the hospital and started on rocephin for UTI and PTOT evals. She had a CT of the brain which had possible subacute infarcts on it however consistent with the areas of prior stroke. An MRI was done to further evaluate and an echo was obtained as the last one was in 2014 in our records. The MRI did not reveal acute strokes. The echo was unremarkable. Was very debilitated with PTOT however her was resistant to placement and desired home care only. This was arranged and she was discharged home with home health care in stable condition. Her urine grew out klebsiella susceptible to keflex so she was switch from rocephin to keflex for a total of 5 days of therapy. She will need to continue physical therapy with home health care and she should follow-up with her PCP in 1-2 weeks. This patient was seen by Jovani Cano PA-C under the supervision of Doctor Tony. [] Discharge Diet: Low fat/ Low Cholesterol, 2000 mg Sodium Diet Discharge Activity: Return to Normal Activity Home Medications: Medications to take at Discharge Atorvastatin Calcium [Lipitor] 40 mg PO QHS 06/18/16 hydrALAZINE [Apresoline] 10 mg PO BID 06/18/16 Amlodipine [Norvasc] 10 mg PO DAILY 07/13/17 Clonazepam [Clonazepam Tab.Rapdis] 1 mg PO QHS 07/13/17 Escitalopram Oxalate [Lexapro] 5 mg PO DAILY 07/13/17 Cephalexin [Keflex] 500 mg PO Q12 #4 cap 07/15/17 Levothyroxine [Synthroid] 50 mcg PO DAILY@0600 #30 tab 07/15/17 Following Prescrptions Were Given to Patient: Cephalexin [Keflex] 500 mg PO Q12 #4 cap Levothyroxine [Synthroid] 50 mcg PO DAILY@0600 #30 tab Primary Care Physician: Pascual Alberto MD [Primary Care Provider] - Please follow up with your Primary Care Physician in: 1-2 weeks Disposition: Home with Home Health Minutes spent on discharge:: 35 Patient Condition:: Stable Medical Necessity - Tobacco Use Smoking Status: Never smoker Meaningful Use Info Meaningful Use Diagnoses (Choose all that apply): None applicable <Manjit Jimenez - Last Filed: 07/15/17 15:14> Discharge Date and Diagnosis - Secondary Discharge Diagnosis Chronic Problems PFO (patent foramen ovale) (Chronic) Obesity (BMI 30.0-34.9) (Chronic) Sjogren's disease (Chronic) Diabetes (Chronic) Dementia (Chronic) Hospital Course and Treatment Summary of Care Provided: This patient was seen in conjunction with Jovani CHAUHAN. I have independently interviewed and examined the patient and reviewed pertinent history, examination findings, laboratory and plan of management. I have reviewed the note and agree with the documented findings with the few additional points. In brief, patient is admitted for increasing weakness. Patient has right-sided upper and lower extremity weakness and deformity secondary to multiple previous ischemic and hemorrhagic infarct/stroke as mentioned above. Urine culture shows Klebsiella pneumonia. Patient discharged on Keflex. I have discussed my assessment with Jovani CHAUHAN and orders have been reviewed. Discharge medication reconciliation done. Discharge follow-up instructions given. Total time spent, exact 32 minutes on discharge meds reconciliation, examination , review of imaging and blood test and discussion with the patient on follow-up instructions. [] Clinical Impression(s) from Imaging Studies Brain CT 07/13/17 18:27 IMPRESSION: Subacute infarct left posterior cerebral artery territory unchanged. MRI would be helpful for further characterization if clinically warranted. Remote bilateral lacunar infarcts. Brain MRI 07/14/17 10:28 No evidence for acute or subacute ischemic insult. Chronic left basal ganglia hemorrhagic infarct. Chronic small vessel disease. Chronic left REGIONAL CRA division infarct in the left occipital lobe. Chronic right cerebellar infarct. No evidence for acute intracranial hemorrhage or mass seen. Microbiology Past 72 Hours 07/13/17 19:10 Urine, Catheterized Urine Culture - Final Klebsiella pneumoniae sp pneum Laboratory Results 07/15/17 05:45: Sodium 142, Potassium 3.9, Chloride 113 H, Carbon Dioxide 21.0, Anion Gap 8, BUN 16, Creatinine 0.87, Estim Creat Clear Calc 45.69, Est GFR ( MDRD) Af Amer 84, Est GFR (MDRD) Non-Af 69, BUN/Creatinine Ratio 18.4, Glucose 98, Calcium 8.6 07/15/17 05:50: Free T4 1.80 H Code Visit Inpatient E&M: 60632 Disch Hosp
== END 2017-07-15 12:38 | disposition home health service (06) | DRG 690 ==
LOC: ED 20:02 → MS3 22:42
PROVIDERS: Physician Assistant; Admitting Provider Internal Medicine; Emergency Provider Emergency Medicine; Family Provider Family Medicine; PCP Family Medicine; Visit Provider Internal Medicine
DX: N30.00 Acute cystitis without hematuria (principal); E87.0 Hyperosmolality and hypernatremia; I69.351 Hemiplegia and hemiparesis following cerebral infarction affecting right dominant side; R13.10 Dysphagia, unspecified; M35.00 Sjogren syndrome, unspecified; F03.90 Unspecified dementia, unspecified severity, without behavioral disturbance, psychotic disturbance, mood disturbance, and anxiety; E86.0 Dehydration; E03.9 Hypothyroidism, unspecified; B96.1 Klebsiella pneumoniae [K. pneumoniae] as the cause of diseases classified elsewhere; E11.9 Type 2 diabetes mellitus without complications; E87.6 Hypokalemia; I10 Essential (primary) hypertension; Z87.74 Personal history of (corrected) congenital malformations of heart and circulatory system
CPT/HCPCS: 36415; 70450; 70551; 71045; 80048; 80053; 81001; 84439; 84443; 84484; 85025; 87040; 87077; 87086; 87088; 87186; 92526; 93005; 93306; 97162; 97166; 97530; 97802; 99285; A9585; J7030; Q9957; A4216; C8929